=== PATIENT | male | born 1975 | race Caucasian/White ===

== ENCOUNTER 2021-07-26 10:13 | Inpatient (IN) | payer OTHER ==
--- NOTE | 2021-07-26 12:22 | ED ---
Psych HPI - General Chief Complaint: Psychiatric Symptoms Stated Complaint: suicidal Time Seen by Provider: 07/26/21 10:41 Source: patient, RN notes reviewed Mode of arrival: ambulatory Limitations: no limitations - History of Present Illness Initial Comments: 45-year-old male presents emergency Department for psychiatric evaluation. Patient states that he is suicidal. He states that he has attempted suicide in the past he states last 2 weeks she's had severe depression states that his daughters have been keeping him alive. Patient states that he was standing with a gun at his head today. Patient states that he does not feel safe. Patient offers no other complaints. Patient does admit to marijuana use, occasional alcohol use. - Related Data Home Medications Medication Instructions Recorded Confirmed amLODIPine BESYLATE [Norvasc] 10 mg PO DAILY 06/17/15 07/26/21 lisinopriL [Zestril] 10 mg PO DAILY 06/17/15 07/26/21 Atorvastatin [Lipitor] 20 mg PO HS 07/26/21 07/26/21 Cholecalciferol [Vitamin D3 (25 50 mcg PO DAILY 07/26/21 07/26/21 Mcg = 1000 Iu)] Omeprazole [PriLOSEC] 40 mg PO AC-BID 07/26/21 07/26/21 Allergies Allergy/AdvReac Type Severity Reaction Status Date / Time gabapentin AdvReac DELIRIUM Verified 07/26/21 12:30 Review of Systems ROS Statement: Those systems with pertinent positive or pertinent negative responses have been documented in the HPI. ROS Other: All systems not noted in ROS Statement are negative. Past Medical History Past Medical History: GERD/Reflux, Hearing Disorder / Deafness, Hypertension, Osteoarthritis (OA) Additional Past Medical History / Comment(s): [facility] History of Any Multi-Drug Resistant Organisms: None Reported Additional Past Surgical History / Comment(s): VASECTOMY Past Anesthesia/Blood Transfusion Reactions: No Reported Reaction Past Psychological History: No Psychological Hx Reported Smoking Status: Never smoker Past Alcohol Use History: Rare Past Drug Use History: None Reported - Past Family History Mother Family Medical History: No Reported History General Exam Limitations: no limitations General appearance: alert, in no apparent distress Head exam: Present: atraumatic, normocephalic, normal inspection Eye exam: Present: normal appearance, PERRL, EOMI. Absent: scleral icterus, conjunctival injection, periorbital swelling ENT exam: Present: normal exam, normal oropharynx, mucous membranes moist Neck exam: Present: normal inspection, full ROM. Absent: tenderness, meningismus, lymphadenopathy Respiratory exam: Present: normal lung sounds bilaterally. Absent: respiratory distress, wheezes, rales, rhonchi, stridor Cardiovascular Exam: Present: regular rate, normal rhythm, normal heart sounds. Absent: systolic murmur, diastolic murmur, rubs, gallop, clicks Neurological exam: Present: alert, oriented X3, CN II-XII intact Psychiatric exam: Present: depressed, suicidal ideation Skin exam: Present: warm, dry, intact, normal color. Absent: rash Course Vital Signs 07/26/21 07/26/21 10:16 12:00 Temperature 97.0 F L Pulse Rate 82 87 Respiratory 18 18 Rate Blood Pressure 164/105 177/102 O2 Sat by Pulse 100 98 Oximetry Medical Decision Making - Medical Decision Making 45-year-old male presented for psychiatric evaluation patient does have a EPS case discussed with psychiatrist for constipation to be admitted. Patient did sign voluntarily. Disposition Clinical Impression: Depression, Suicidal ideation Disposition: TRANSFER TO PSYCH HOSP/UNIT Condition: Fair Referrals: Koffi Yadav DO [Primary Care Provider] - 1-2 days Time of Disposition: 13:34
[2021-07-26 14:10] LABS: Amphetamine Screen,Urine Not Detected (NotDetected); Barbiturate Screen,Urine Not Detected (NotDetected); Benzodiazepines Screen,Urine Not Detected (NotDetected); Cocaine Screen,Urine Not Detected (NotDetected); Methadone Screen, Urine Not Detected (NotDetected); Opiate Screen,Urine Not Detected (NotDetected); Oxycodone Screen, Urine Not Detected (NotDetected); Phencyclidine Screen,Urine Not Detected (NotDetected); Tricyclic Antidepressant,Urine Not Detected (NotDetected); Urn Cannabinoid Scrn Detected (NotDetected)
[2021-07-26] MEDS ORDERED: HALOPERIDOL LACTATE 5 MG/ML 1 ML VIAL IM PRN (16:34)
[2021-07-26] MEDS ORDERED: MAG HYDROX/AL HYDROX/SIMETH 30 ML CUP PO PRN (16:34)
[2021-07-26] MEDS ORDERED: ACETAMINOPHEN TAB 325 MG TAB PO PRN (16:34)
[2021-07-26] MEDS ORDERED: LORazepam 1 MG TAB PO PRN (16:34)
[2021-07-26] MEDS ORDERED: MAGNESIUM HYDROXIDE 2,400 MG/10 ML CUP PO PRN (16:34)
[2021-07-26] MEDS ORDERED: haloperidoL 5 MG TAB PO PRN (16:35)
[2021-07-26] MEDS ORDERED: LORazepam 2 MG/ML INJ IM PRN (16:35)
[2021-07-26] MEDS: PANTOPRAZOLE 40 MG TABLET PO SCH (17:16)
[2021-07-26] MEDS: ATORVASTATIN 20 MG TAB PO SCH (21:07)
[2021-07-27 07:22] LABS: Basophils # (A) 0.1 k/uL (0-0.2); Basophils % (A) 1 %; Eosinophils # (A) 0.1 k/uL (0-0.7); Eosinophils % (A) 1 %; HCT 47.5 % (39.0-53.0); HGB 15.5 gm/dL (13.0-17.5); Lymphocytes # (A) 1.7 k/uL (1.0-4.8); Lymphocytes % (A) 21 %; MCH 30.3 pg (25.0-35.0); MCHC 32.7 g/dL (31.0-37.0); MCV 92.7 fL (80.0-100.0); Mean Platelet Volume 9.7; Monocytes # (A) 0.6 k/uL (0-1.0); Monocytes % (A) 8 %; Neutrophils # (A) 5.6 k/uL (1.3-7.7); Neutrophils % (A) 68 %; Platelet Count 297 k/uL (150-450); RBC 5.12 m/uL (4.30-5.90); RDW 12.5 % (11.5-15.5); WBC 8.2 k/uL (3.8-10.6)
[2021-07-27 07:33] LABS: ALT 21 U/L (4-49); AST 23 U/L (17-59); African American GFR (CKD) >90 (>60 ml/min/1.73 sqM); Albumin 4.5 g/dL (3.5-5.0); Alkaline Phosphatase 76 U/L (38-126); Anion Gap 6 mmol/L; Blood Urea Nitrogen 10 mg/dL (9-20); Calcium 9.5 mg/dL (8.4-10.2); Carbon Dioxide 31 mmol/L (22-30); Chloride 101 mmol/L (98-107); Glucose 105 mg/dL (74-99); Non-African American GFR(CKD) >90 (>60 ml/min/1.73 sqM); Potassium 4.8 mmol/L (3.5-5.1); Sodium 138 mmol/L (137-145); Total Bilirubin 1.5 mg/dL (0.2-1.3); Total Protein 7.5 g/dL (6.3-8.2)
[2021-07-27] MEDS: amLODIPine 10 MG TAB PO SCH (08:14)
[2021-07-27] MEDS: CHOLECALCIFEROL 25 MCG (1000 IU) TABLET PO SCH (08:14)
[2021-07-27] MEDS: PANTOPRAZOLE 40 MG TABLET PO SCH ×2 (08:15→17:38)
[2021-07-27] MEDS: lisinopriL 10 MG TAB PO SCH (08:15)
--- NOTE | 2021-07-27 13:59 | P.CONS ---
History of Present Illness - Reason for Consult Consult date: 07/26/21 - History of Present Illness This is a 45-year-old male with past medical history significant for GERD, hypertension, osteoarthritis, hard of hearing. Has a surgical history of neck surgery with a surgeon in [place], states he needs back surgery but won't be getting it, also states his right hip is out of place, and also with left elbow pain with range of motion. Patient came to the yesterday afternoon for psychiatric evaluation, with suicidal ideations with past history of attempted suicide. Patient reports he had pointed a gun at his own head earlier that day. Patient reports severe depression over the last couple weeks. 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 States that the problem is that he is alone at home when he is not with his daughter, has no significant other. He does work-out. Currently uses powdered nicotine, previous history of smoking, occasional marijuana use, and occasional alcohol use. Previous suicide attempt was related to him being "annihalated, and waking up in the morning next to a pill bottle." States it was not intentional. He has never been on medications for depression or followed up with outpatient counseling services. Patient follows with Dr Stein in the primary care setting. Medications include omeprazole, atorvastatin, lisinopril, norvasc, vitamin D3, ALLERGY to gabapentin. He also states his acid reflux comes from years of daily ibuprofen use for his chronic back pain, states he has been on norco, tylenol 3's etc in the past and does not want any pain medication here. Labs today show CO2 31, glucose 15, total bili 1.5, TSH within normal limits at 2.160, urine drug toxicology negative with the exception of marijuana, COVID Negative. We are seeing patient in consultation this admission. Patient is afebrile, heart 71, blood pressure 147/76, 98% room air REVIEW OF SYSTEMS: CONSTITUTIONAL: No fever, no malaise, no fatigue. HEENT: No recent visual problems or hearing problems. Denied any sore throat. CARDIOVASCULAR: No chest pain, orthopnea, PND, no palpitations, no syncope. PULMONARY: No shortness of breath, no cough, no hemoptysis. GASTROINTESTINAL: No diarrhea, no nausea, no vomiting, no abdominal pain. NEUROLOGICAL: No headaches, no weakness, no numbness. HEMATOLOGICAL: Denies any bleeding or petechiae. GENITOURINARY: Denies any burning micturition, frequency, or urgency. MUSCULOSKELETAL/RHEUMATOLOGICAL: Denies any joint swelling, or any muscle pain. Reports left elbow pain with extension and rotation. ENDOCRINE: Denies any polyuria or polydipsia. The rest of the 14-point review of systems is negative. PHYSICAL EXAMINATION: GENERAL: The patient is alert and oriented x3, not in any acute distress. Well developed, well nourished. HEENT: Pupils are round and equally reacting to light. EOMI. No scleral icterus. No conjunctival pallor. Normocephalic, atraumatic. No pharyngeal erythema. No thyromegaly. CARDIOVASCULAR: S1 and S2 present. No murmurs, rubs, or gallops. PULMONARY: Chest is clear to auscultation, no wheezing or crackles. ABDOMEN: Soft, nontender, nondistended, normoactive bowel sounds. No palpable organomegaly. MUSCULOSKELETAL: No joint swelling or deformity. EXTREMITIES: No cyanosis, clubbing, or pedal edema. NEUROLOGICAL: Gross neurological examination did not reveal any focal deficits. SKIN: No rashes. Assessment and plan Assessment Depression with suicidal ideation Past history of suicide attempt Hypertension, on home medications GERD, on Protonix Daily NSAID use History osteoarthritis Chronic daily nicotine use Marijuana use GI prophylaxis DVT prophylaxis Full Code Plan Resume home medications Patient denies need for nicotine patch/gum Patient denied imaging for left elbow pain Repeat CMP tomorrow Thank you for this consultation we will continue to follow along as needed. Past Medical History Past Medical History: GERD/Reflux, Hearing Disorder / Deafness, Hypertension, Osteoarthritis (OA) Additional Past Medical History / Comment(s): [facility] History of Any Multi-Drug Resistant Organisms: None Reported Additional Past Surgical History / Comment(s): VASECTOMY, Neck surgery, he reports that he needs back surgery and right hip, left knee and left elbow, Past Anesthesia/Blood Transfusion Reactions: No Reported Reaction Past Psychological History: No Psychological Hx Reported Smoking Status: Never smoker Past Alcohol Use History: Rare Past Drug Use History: None Reported - Past Family History Mother Family Medical History: No Reported History Medications and Allergies Home Medications Medication Instructions Recorded Confirmed Type amLODIPine BESYLATE [Norvasc] 10 mg PO DAILY 06/17/15 07/26/21 History lisinopriL [Zestril] 10 mg PO DAILY 06/17/15 07/26/21 History Atorvastatin [Lipitor] 20 mg PO HS 07/26/21 07/26/21 History Cholecalciferol [Vitamin D3 (25 50 mcg PO DAILY 07/26/21 07/26/21 History Mcg = 1000 Iu)] Omeprazole [PriLOSEC] 40 mg PO AC-BID 07/26/21 07/26/21 History Allergies Allergy/AdvReac Type Severity Reaction Status Date / Time gabapentin AdvReac DELIRIUM Verified 07/26/21 12:30 Physical Exam Vitals: Vital Signs Temp Pulse Pulse Resp BP BP Pulse Ox 07/27/21 06:42 98.7 F 71 161/97 98 07/26/21 17:09 98.2 F 63 20 139/89 07/26/21 16:00 68 18 174/89 98 Intake and Output 07/26/21 07/27/21 07/27/21 22:59 06:59 14:59 Other: Weight 83.915 kg Results CBC & Chem 7: 07/27/21 06:47 07/27/21 06:47 Labs: Abnormal Lab Results - Last 24 Hours (Table) 07/26/21 07/27/21 Range/Units 13:33 06:47 Carbon Dioxide 31 H (22-30) mmol/L Glucose 105 H (74-99) mg/dL Total Bilirubin 1.5 H (0.2-1.3) mg/dL U Marijuana (THC) Screen Detected H (NotDetected) Assessment and Plan Time with Patient: Greater than 30
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
[2021-07-27 16:02] LABS: Chol/HDL Ratio 2.82 Ratio; LDL Cholesterol,Calculated 61.8 mg/dL (0.0-131.0); VLDL Calculation 16.32 mg/dL (5.00-40.00)
[2021-07-27] MEDS: QUEtiapine 100 MG TAB PO SCH (21:23)
[2021-07-27] MEDS: ATORVASTATIN 20 MG TAB PO SCH (21:23)
[2021-07-28 06:12] VITALS: TEMP 97.5
[2021-07-28] MEDS: CITALOPRAM HYDROBROMIDE 10 MG TAB PO SCH (08:52)
[2021-07-28] MEDS: amLODIPine 10 MG TAB PO SCH (08:52)
[2021-07-28] MEDS: lisinopriL 10 MG TAB PO SCH (08:52)
[2021-07-28] MEDS: PANTOPRAZOLE 40 MG TABLET PO SCH ×2 (08:52→17:38)
[2021-07-28] MEDS: CHOLECALCIFEROL 25 MCG (1000 IU) TABLET PO SCH (08:52)
--- NOTE | 2021-07-28 15:14 | P.PN ---
Subjective Progress Note Date: 07/28/21 Principal diagnosis: PRogress note He was seen today . Olivia was discussed at the team meeting. He exhibited suicidal ideation with hi shome gun gunjan was taken away by his friend and his mother prior to hi sadmsision. 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 He questioned about the dosage of Seroquel ; he thought seroquel wwas a sedative hyponotic. He used to take melatonin. The issue of hopelessness and recurrent suicidal idetion was discussed at some length. He was more comfortable with the milieu and reframed his perpective; : He now has reason to live and would not be thinking of suicidal plan as a way out. He has made grey to signing himself to the oupatient program at [facility] soon. He indicated he would have a difficult time to adjust to change of staff. MSE; agitation has largely resolved. No longer was hostile . He was less irritable congruent with his thought content. No paranoid ideas of reference. No suicidal or homicidal ideation . No psychotic elements o fhallucinations. Insight judgment has much improved. Diag: TPSD, Social anxiety disorder, Atypical depressive disorder Plan: 1. Rx given x 30 dasy. Seroquel 75 mg po qhs for PTSD, celexa 10 mg po od 2. Discharge tomorrow. 3. D/S done ahead of date Objective - Vital Signs Vital signs: Vital Signs Temp 97.5 F L 07/28/21 06:11 Pulse 99 07/28/21 06:11 Resp 14 07/28/21 06:11 BP 137/96 07/28/21 06:11 Pulse Ox 98 07/27/21 06:42 - Labs CBC & Chem 7: 07/27/21 06:47 07/27/21 06:47
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
[2021-07-28] MEDS ORDERED: QUEtiapine 25 MG TAB PO SCH (21:00)
[2021-07-28] MEDS: QUEtiapine 100 MG TAB PO SCH (21:10)
[2021-07-28] MEDS: ATORVASTATIN 20 MG TAB PO SCH (21:10)
[2021-07-29 06:29] VITALS: BP 155/90; PULSE 86; RESP 16
[2021-07-29] MEDS: CHOLECALCIFEROL 25 MCG (1000 IU) TABLET PO SCH (08:25)
[2021-07-29] MEDS: amLODIPine 10 MG TAB PO SCH (08:25)
[2021-07-29] MEDS: lisinopriL 10 MG TAB PO SCH (08:25)
[2021-07-29] MEDS: CITALOPRAM HYDROBROMIDE 10 MG TAB PO SCH (08:25)
[2021-07-29] MEDS: PANTOPRAZOLE 40 MG TABLET PO SCH (08:25)
--- NOTE | 2021-07-29 11:38 | P.PN ---
Progress Note - Text Progress Note Date: 07/29/21 Clinical Problems: Posttraumatic stress disorder delayed onset, atypical depressive disorder, social anxiety disorder Interim history: I reviewed the medical record, interviewed the patient and discussed the treatment and treatment plan with the treatment team. He is a 45-year-old male admitted to the psychiatric unit voluntarily on 07/26/2021. He was evaluated by Dr. Braga who wrote a discharge summary and discharge orders for today on 07/28/2021. Anderson stated that he is feeling well and wishes to return home. He denied feeling depressed, experiencing uncontrolled anxiety or having thoughts of self- harm. 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 He plans to follow up at [facility] and the clinical social worker as scheduled an appointment for 07/30/2021. Mental status exam: The patient presents alert, pleasant, and cooperative. He was calmly seated without any agitated behavior. He reports that his mood is good. Affect was congruent and euthymic. He denied suicidal or homicidal id eation intent, intent or plan. He denied any auditory or visual hallucinations. There was no evidence of any delusional thought content. His thought process is linear and goal-directed. His speech is fluent and nonpressured. His memory and concentration is grossly intact for the purposes of this session. Assessment: He is much improved from admission and appropriate for discharge and outpatient aftercare Plan: Discharge as written by Dr. Braga with follow-up at the [facility].
== END 2021-07-29 14:17 | disposition home or self-care (01) | DRG 885 ==
LOC: EC 10:13 → 3MHU 16:04
PROVIDERS: ADMIT Psychiatry & Neurology Psychiatry; ATTEND Psychiatry & Neurology Psychiatry
DX: F32.89 Other specified depressive episodes (principal); R45.851 Suicidal ideations; F40.10 Social phobia, unspecified; F41.0 Panic disorder [episodic paroxysmal anxiety]; F41.1 Generalized anxiety disorder; F43.10 Post-traumatic stress disorder, unspecified; G89.29 Other chronic pain; H91.90 Unspecified hearing loss, unspecified ear; I10 Essential (primary) hypertension; K21.9 Gastro-esophageal reflux disease without esophagitis; Z20.822 Contact with and (suspected) exposure to COVID-19; F17.210 Nicotine dependence, cigarettes, uncomplicated; M25.522 Pain in left elbow; Z79.1 Long term (current) use of non-steroidal anti-inflammatories (NSAID); Z79.899 Other long term (current) drug therapy; Z91.51 Personal history of suicidal behavior; Z88.8 Allergy status to other drugs, medicaments and biological substances; Z60.2 Problems related to living alone; Z98.890 Other specified postprocedural states
CPT/HCPCS: 80053; 80061; 80306; 82075; 83036; 84443; 85025; 87635; 99285

== ENCOUNTER → 2023-06-19 | Outpatient (CLI) | payer OTHER ==
--- NOTE | 2023-06-19 09:11 | XR ---
EXAMINATION TYPE: XR lumbar spine 2 or 3V DATE OF EXAM: 06/19/2023 8:40 AM CLINICAL INDICATION:Male, 47 years old with history of M51.36 OTHER INTERVERTEBRAL DISC DEGENERATION, LUM; PHH COMPARISON: None TECHNIQUE: XR lumbar spine 2 or 3V - Frontal, lateral and coned in L5-S1 lateral views of the spine. FINDINGS: No evidence of any acute osseous pathology. No evidence of loss of vertebral body height i s seen. There is normal alignment of the lumbar vertebral bodies. Mild scattered disc space narrowing . Multilevel marginal osteophyte formation throughout the visualized spine. There is facet joint arth ropathy throughout the spine. At least mild neural foraminal stenosis at L5-S1. Disc space narrowing worse at L5-S1. IMPRESSION: 1. No acute fracture. 2. Mild multilevel disc degeneration.
== END | disposition home or self-care (01) ==
LOC: RADXRMAIN 08:16
PROVIDERS: ATTEND Physician Assistant Medical
DX: M51.36 Other intervertebral disc degeneration, lumbar region (principal)
CPT/HCPCS: 72100

== ENCOUNTER → 2023-06-19 | Outpatient (CLI) | payer OTHER ==
[2023-06-19 08:20] VITALS: BP 170/129; PULSE 74; RESP 16
--- NOTE | 2023-06-19 13:58 | P.PAINPG ---
PQRS Measure Charge Sheet Comment: HISTORY OF PRESENT ILLNESS: A 47 yr old male as a referral from the [facility] presents today w severe and chronic LBP since 2009 secondary to DDD, spondylosis and facet arthropathy without myelopathy for evaluation. Pt states pain level is provoked at 10/10 in intensity, constant, localized in the lower lumbar spine, predominantly axial, sharp in character w occasional shooting pain towards the BLEs. Pain is provoked by standing/ sitting for periods >15 min. Pain is alleviated by physician guided exercises/ stretches on the elliptical 30 min daily x 3 mo, heat, medications (Ibu), Lidocaine patches, repositioning and rest. 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 Oswestry axial pain score at 26. PMH: OA, GERD, Kaw, HTN, MDD PSH: Colonoscopy (2016), Vasectomy, Cervical Surgery SH: Never smoker, Rare ETOH use, Cannabis use. Has 2 daughters. FH: Mo- No Reported History All: See list Meds: See list REVIEW OF ORGAN SYSTEMS: CONSTITUTIONAL: No fevers or chills. No recent weight loss. NEUROLOGICAL: + numbness and tingling along the distal extremities. No seizure disorders or headaches. MUSCULOSKELETAL: + pain PSYCHIATRIC: Denies current depression or suicidal thoughts. Physical Examinations : Constitutional : Cooperative , not in acute distress . Neurologic : Cranial nerve II to XII intact. No focal neurological deficits. Psychiatric : alert & oriented x 3. Matching mood & appropriate affect. Judgment & insight intact. Musculoskeletal : Cervical Spine Motor strength in the deltoid and biceps: Normal right side. Normal Left side Motor strength biceps and the wrist extensors: Normal right side . Normal left side Motor strength in the triceps muscle: Normal right side. Normal left side Deep tendon reflexes: Normal at the b iceps. Normal at Brachioradialis. Normal at triceps Vertebral body tenderness to deep palpation over Cervical facet loading test: positive bilaterally Spurling test: positive bilaterally Neck distraction test: positive bilaterally Corinna sign: positive bilaterally Lumbar spine Motor strength lower extremities ,thigh and legs 5/5 Right side , 5/5 Left side Deep tendon reflexes : Normal Knee Jerk. Normal Ankle Jerk Vertebral body tenderness over L4 Tubbs Test positive Lumbar facet Loading Test: positive Right / positive Left Range of motion of the lumbar spine Flexion 30 degrees, extension 10 degrees Straight Leg Raise test: Left/ Right positive at degrees Morteza test: positive right / positive left. Severe tenderness over the Sacroiliac joint on the Right / Left sides Gaenslen test: positive bilaterally Seated flexion test: positive bilater ally. Sacral spine : Severe tenderness over the Sacroiliac joint: right side / left side Range of motion: Flexion of the lumbar spine <60 degrees Range of motion: Extension of the lumbar spine <20 degrees Gaenslen's Test positive Morteza test: positive right side / left side Thigh Thrust Test Sacral Thrust Test Imaging: None on file Assessment/ Plan : Lumbar DDD Recommended by x ray lumbar spine M51.36 May need additional testing if indicated. Celebrex 100mg PO BIDWM #60 w 1 RF. All questions answered. I have spent greater than 30 minutes on patient care today. Dr Gomez was available by phone for the evaluation of this patient. The time was used to review the medical records including relevant urine studies and Prescription history (MAPs), review of the available imaging, evaluation and examination of the patient, coordination of care with the medical staff and if applicable referring physicians, as well as creation of the medical record PQRS Narrative: Smoking Status Current every day smoker Home Medications: Ambulatory Orders amLODIPine BESYLATE [Norvasc] 10 mg PO DAILY 06/17/15 lisinopriL [Zestril] 10 mg PO DAILY 06/17/15 Atorvastatin [Lipitor] 20 mg PO HS 07/26/21 Cholecalciferol [Vitamin D3 (25 Mcg = 1000 Iu)] 50 mcg PO DAILY 07/26/21 Omeprazole [PriLOSEC] 40 mg PO AC-BID 07/26/21 Atorvastatin [Lipitor] 20 mg PO HS tab 07/28/21 Citalopram Hydrobromide [CeleXA] 10 mg PO DAILY 30 Days #30 tab 07/28/21 QUEtiapine [SEROquel] 75 mg PO HS 30 Days #90 tab 07/28/21 amLODIPine [Norvasc] 10 mg PO DAILY tab 07/28/21 Celecoxib [CeleBREX] 100 mg PO BID PRN 30 Days #60 cap 06/19/23 Controlled Substance Measures - Controlled Substance Measures Is patient prescribed a controlled substance at discharge?: No
== END ==
LOC: PNWHC3 07:39
PROVIDERS: ATTEND Specialist
DX: M51.16 Intervertebral disc disorders with radiculopathy, lumbar region (principal); M47.26 Other spondylosis with radiculopathy, lumbar region; K21.9 Gastro-esophageal reflux disease without esophagitis; I10 Essential (primary) hypertension; E78.5 Hyperlipidemia, unspecified; M48.061 Spinal stenosis, lumbar region without neurogenic claudication; M19.90 Unspecified osteoarthritis, unspecified site; F32.9 Major depressive disorder, single episode, unspecified; F12.90 Cannabis use, unspecified, uncomplicated; F17.200 Nicotine dependence, unspecified, uncomplicated; Z88.8 Allergy status to other drugs, medicaments and biological substances
CPT/HCPCS: 99211

== ENCOUNTER → 2023-07-03 | Outpatient (CLI) | payer OTHER ==
--- NOTE | 2023-07-03 09:44 | MR ---
EXAMINATION TYPE: MR lumbar spine wo con DATE OF EXAM: 07/03/2023 COMPARISON: X-ray of 06/19/2019 HISTORY: Chronic LBP, BLE radiculopathy. TECHNIQUE: T1 and T2 axial and sagittal images of the lumbar spine are submitted. FINDINGS: There is no abnormal signal seen within the visualized spinal cord or paraspinal soft tissu es. Nonspecific nodularity or thickening in the left adrenal gland nonspecific but most likely on the basis of benign adenoma or hyperplasia. At L1-2 there is no evidence of degenerative disc disease, disc herniation, or foraminal encroachment . At L2-3 there is no evidence of degenerative disc disease, a canals of or foraminal encroachment. At L3-4 there is no evidence of degenerative disc disease, a canals of or foraminal encroachment. At L4-5 there is disc desiccation with broad base disc paracentral protrusion effacing the thecal sac . Neural foramina demonstrate mild narrowing bilaterally. At L5-S1 there is severe degenerative disc disease and discogenic marrow changes. Broad-based disc pr otrusion greater paracentrally on the right. Moderate bilateral foraminal bulging greater on the righ t. IMPRESSION: 1. Severe degenerative disc disease L5-S1 with broad-based disc protrusion or small herniation greate r paracentrally on the right. Bilateral foraminal encroachment greater on the right. 2. Broad-based central and left paracentral disc bulging or small subligamentous protrusion L4-L5. Mi ld bilateral foraminal
== END | disposition home or self-care (01) ==
LOC: RADMRIMAIN 08:33
PROVIDERS: ATTEND Specialist
DX: M51.17 Intervertebral disc disorders with radiculopathy, lumbosacral region (principal)
CPT/HCPCS: 72148

== ENCOUNTER → 2023-07-10 | Outpatient (CLI) | payer OTHER ==
[2023-07-10 09:35] VITALS: BP 167/104; PULSE 67; RESP 16; TEMP 98.6
--- NOTE | 2023-07-10 14:07 | P.PAINPG ---
PQRS Measure Charge Sheet Comment: HISTORY OF PRESENT ILLNESS: A 47 yr old male presents today w severe and chronic LBP since 2009 secondary to DDD, spondylosis and facet arthropathy without myelopathy for evaluation. Pt states pain level is provoked at 10/10 in intensity, constant, localized in the lower lumbar spine, predominantly axial, sharp in character w occasional shooting pain towards the BLEs. Pain is provoked by standing/ sitting for periods >15 min. Pain is alleviated by physician guided exercises/ stretches on the elliptical 30 min daily x 3 mo, heat, medications, Lidocaine patches, repositioning and rest. 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 Oswestry axial pain score at 26. Interventional procedures include Medications include Ibu, Lidoderm, Cannabis use REVIEW OF ORGAN SYSTEMS: CONSTITUTIONAL: No fevers or chills. No recent weight loss. NEUROLOGICAL: + numbness and tingling along the distal extremities. No seizure disorders or headaches. MUSCULOSKELETAL: + pain PSYCHIATRIC: Denies current depression or suicidal thoughts. Physical Examinations : Constitutional : Cooperative , not in acute distress . Neurologic : Cranial nerve II to XII intact. No focal neurological deficits. Psychiatric : alert & oriented x 3. Matching mood & appropriate affect. Judgment & insight intact. Musculoskeletal : Cervical Spine Motor strength in the deltoid and biceps: Normal right side. Normal Left side Motor strength biceps and the wrist extensors: Normal right side . Normal left side Motor strength in the triceps muscle: Normal right side. Normal left side Deep tendon reflexes: Normal at the biceps. Normal at Brachioradialis. Normal at triceps Vertebral body tenderness to deep palpation over Cervical facet loading test: positive bilaterally Spurling test: positive bilaterally Neck distraction test: positive bilaterally Corinna sign: positive bilaterally Lumbar spine Motor strength lower extremities ,thigh and legs 5/5 Right side , 5/5 Left side Deep tendon reflexes : Normal Knee Jerk. Normal Ankle Jerk Vertebral body tenderness over L5 Tubbs Test positive Lumbar facet Loading Test: positive Right / positive Left Range of motion of the lumbar spine Flexion 30 degrees, extension 10 degrees Straight Leg Raise test: Left/ Right positive at degrees Morteza test: positive right / positive left. Severe tenderness over the Sacroiliac joint on the Right / Left sides Gaenslen test: positive bilaterally Seated flexion test: positive bilaterally. Sacral spine : Severe tenderness over the Sacroiliac joint: right side / left side Range of motion: Flexion of the lumbar spine <60 degrees Range of motion: Extension of the lumbar spine <20 degrees Gaenslen's Test positive Morteza test: positive right side / left side Thigh Thrust Test Sacral Thrust Test Imaging: None on file Assessment/ Plan : Lumbar DDD Recommended SHERMAN L5-S1 #1. A series of injections for optimal pain relief. Risks, benefits of procedure discussed and patient verbalized understanding. Protocol for discontinuation/continuation of medication surrounding procedure discussed. All questions answered. I have spent greater than 30 minutes on patient care today. Dr Gomez was available by phone for the evaluation of this patient. The time was used to review the medical records including relevant urine studies and Prescription history (MAPs), review of the available imaging, evaluation and examination of the patient, coordination of care with the medical staff and if applicable referring physicians, as well as creation of the medical record PQRS Narrative: Smoking Status Current every day smoker Hx Alcohol Use (MH) Yes Home Medications: Ambulatory Orders amLODIPine BESYLATE [Norvasc] 10 mg PO DAILY 06/17/15 lisinopriL [Zestril] 10 mg PO DAILY 06/17/15 Atorvastatin [Lipitor] 20 mg PO HS 07/26/21 Cholecalciferol [Vitamin D3 (25 Mcg = 1000 Iu)] 50 mcg PO DAILY 07/26/21 Omeprazole [PriLOSEC] 40 mg PO AC-BID 07/26/21 Atorvastatin [Lipitor] 20 mg PO HS tab 07/28/21 Citalopram Hydrobromide [CeleXA] 10 mg PO DAILY 30 Days #30 tab 07/28/21 QUEtiapine [SEROquel] 75 mg PO HS 30 Days #90 tab 07/28/21 amLODIPine [Norvasc] 10 mg PO DAILY tab 07/28/21 Celecoxib [CeleBREX] 100 mg PO BID PRN 30 Days #60 cap 06/19/23 Controlled Substance Measures - Controlled Substance Measures Is patient prescribed a controlled substance at discharge?: No
== END ==
LOC: PNWHC3 08:41
PROVIDERS: ATTEND Specialist
DX: M51.36 Other intervertebral disc degeneration, lumbar region (principal); F17.200 Nicotine dependence, unspecified, uncomplicated; F12.90 Cannabis use, unspecified, uncomplicated; Z88.1 Allergy status to other antibiotic agents
CPT/HCPCS: 99211

== ENCOUNTER 2023-07-20 12:07 | Day surgery (SDC) | payer OTHER ==
[2023-07-17 14:52] VITALS: BMI 32.5
[~2023-07-20 12:07] MED LIST: LACTATED RINGERS 1,000 ML IV SCH
[2023-07-20 12:53] VITALS: TEMP 98.3
[2023-07-20] MEDS ORDERED: methylPREDNISolone ACETATE 80 MG/ML 1 ML VIAL ONE (13:18)
[2023-07-20] MEDS ORDERED: IOPAMIDOL M200 10 ML VIAL ONE (13:18)
--- NOTE | 2023-07-20 13:24 | P.PCN ---
Date of Procedure: 07/20/23 Procedure(s) Performed: PREOPERATIVE DIAGNOSIS: 1- Lumbar Degenerative Disc Diseases 2-Lumbar herniated disc disease. 3-lumbar spinal stenosis POSTOPERATIVE DIAGNOSIS: 1-lumbar degenerative disc disease. 2-lumbar herniated disc disease. 3-lumbar spinal stenosis. PROCEDURE 1. Lumbar epidural steroid injection under fluoroscopic guidance at the L5-S1 level. (Fluoroscopy imaging was available in radiology department) 2. Lumbar epidurogram. ANESTHESIA: Lidocaine 1% 3 and then only. EBL: Minimal PROCEDURE INDICATION: The patient with low back pain and radiculitis symptoms unresponsive to conservative treatment. Fluoroscopy was used to optimize visualization of the needle placement and to maximize safety. PROCEDURE DESCRIPTION / TECHNIQUE: The patient was seen and identified in the preoperative area. Risks, benefits, complications including but not limited to infections ,bleeding ,allergic reaction to the medications ,nerve damage and not complete pain releife , and alternatives were discussed with the patient. The patient agreed to proceed with the procedure and signed the consent, and vital signs were stable. Patient was taken to the OR and time out was completed. The patient was placed in the prone position on procedure table and a pillow was placed under the abdomen to reduce lumbar lordosis. The lumbosacral area was prepped and draped in the usual sterile fashion.ere closely monitored during the procedure. Vital signs was monitered during the entire procedure. Using anterior-posterior fluoroscopy, the L5-S1 interlaminar space was identified and the skin over this site was marked and then infiltrated with 1% lidocaine subcutaneously. Subsequently, a 20-gauge Tuohy epidural needle was inserted and advanced toward the epidural space using the ``Loss of resistance technique and guided by AP and lateral fluoroscopy. The correct needle position in the epidural space was verified with the injection of 2 mL of the water soluble contrast dye Isovue 200 contrast and observing an excellent epidurogram with the epidural spread of the dye, after negative aspiration for blood and CSF and in the absence of paresthesias. Again after negative aspiration, a 6 ml mixture containing 80 mg of Depo-medrol ( Preservetive Free ), and 2 ml of preservative free Normal Saline, and 2 ml of preservative free lidocaine 1% solution was injected and a washout of epidurogram was seen. Needle was withdrawn intact, skin was cleansed, and bandages were applied. COMPLICATIONS: None DISPOSITION / PLANS: The patient was placed in a supine position and transferred to the recovery area in a stable condition for observation. There was no evidence of lower extremity motor or sensory deficit after the procedure. Patient was discharged from the recovery room after meeting discharge criteria. Home discharge instructions were given to the patient by the staff. The patient was reexamined prior to discharge. The patient will schedule a follow up in the clinic in 2-4 weeks.
[2023-07-20 13:59] VITALS: BP 145/74; PULSE 74; RESP 16
--- NOTE | 2023-07-20 14:18 | FL ---
EXAMINATION TYPE: FL guided pain mgmt statistic DATE OF EXAM: 07/20/2023 HISTORY: LESI dap [id number] fl 2.3 lesi
== END 2023-07-20 14:00 | disposition home or self-care (01) ==
LOC: ORPAIN 12:07
PROVIDERS: ATTEND Anesthesiology
DX: M51.16 Intervertebral disc disorders with radiculopathy, lumbar region (principal); M48.061 Spinal stenosis, lumbar region without neurogenic claudication; Z88.9 Allergy status to unspecified drugs, medicaments and biological substances
CPT/HCPCS: 62323; J1040; Q9966

== ENCOUNTER → 2023-08-14 | Outpatient (CLI) | payer OTHER ==
[2023-08-14 09:07] VITALS: BP 172/129; PULSE 72; RESP 15; TEMP 98.5
--- NOTE | 2023-08-14 14:35 | P.PAINPG ---
PQRS Measure Charge Sheet Comment: HISTORY OF PRESENT ILLNESS: A 47 yr old male presents today w severe and chronic LBP since 2009 secondary to DDD, spondylosis and facet arthropathy without myelopathy for evaluation s/p SHERMAN L5-S1 #1. Pt states he experienced 90 % pain relief x 3 wks s/p procedure. Pt states pain level is provoked at 2 /10 in intensity, constant, localized in the lower lumbar spine, predominantly axial, sharp in character w occasional shooting pain towards the BLEs. Pain is provoked by standing/ sitting for periods >15 min. Pain is alleviated by physician guided exercises/ stretches on the elliptical 30 min daily x 3 mo, heat, medications, Lidocaine patches, repositioning and rest. 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 Oswestry axial pain score at 20. Dangers of elevated BP discussed. Pt states he's on BP meds and wants to go to the [facility] clinic because he "doesn't want a big bill" Pt refused to go to the ER downstairs, be assisted downstairs or get his BP rechecked. Interventional procedures include SHERMAN L5-S1 #1 Medications include Ibu, Lidoderm, Cannabis use REVIEW OF ORGAN SYSTEMS: CONSTITUTIONAL: No fevers or chills. No recent weight loss. NEUROLOGICAL: + numbness and tingling along the distal extremities. No seizure disorders or headaches. MUSCULOSKELETAL: + pain PSYCHIATRIC: Denies current depression or suicidal thoughts. Physical Examinations : Constitutional : Cooperative , not in acute distress . Neurologic : Cranial nerve II to XII intact. No focal neurological deficits. Psychiatric : alert & oriented x 3. Matching mood & appropriate affect. Judgment & insight intact. Musculoskeletal : Cervical Spine Motor strength in the deltoid and biceps: Normal right side. Normal Left side Motor strength biceps and the wrist extensors: Normal right side . Normal left side Motor strength in the triceps muscle: Normal right side. Normal left side Deep tendon reflexes: Normal at the biceps. Normal at Brachioradialis. Normal at triceps Vertebral body tenderness to deep palpation over Cervical facet loading test: positive bilaterally Spurling test: positive bilaterally Neck distraction test: positive bilaterally Corinna sign: positive bilaterally Lumbar spine Motor strength lower extremities ,thigh and legs 5/5 Right side , 5/5 Left side Deep tendon reflexes : Normal Knee Jerk. Normal Ankle Jerk Vertebral body tenderness over L5 Tubbs Test positive Lumbar facet Loading Test: positive Right / positive Left Range of motion of the lumbar spine Flexion 30 degrees, extension 10 degrees Straight Leg Raise test: Left/ Right positive at degrees Morteza test: positive right / positive left. Severe tenderness over the Sacroiliac joint on the Right / Left sides Gaenslen test: positive bilaterally Seated flexion test: positive bilaterally. Sacral spine : Severe tenderness over the Sacroiliac joint: right side / left side Range of motion: Flexion of the lumbar spine <60 degrees Range of motion: Extension of the lumbar spine <20 degrees Gaenslen's Test positive Morteza test: positive right side / left side Thigh Thrust Test Sacral Thrust Test Imaging: None on file Assessment/ Plan : Lumbar DDD Will manage residual pain and may RTC on an as needed basis. All questions answered. I have spent greater than 30 minutes on patient care today. Dr Gomez was available by phone for the evaluation of this patient. The time was used to review the medical records including relevant urine studies and Prescription history (MAPs), review of the available imaging, evaluation and examination of the patient, coordination of care with the medical staff and if applicable referring physicians, as well as creation of the medical record PQRS Narrative: Smoking Status Current every day smoker Hx Alcohol Use (MH) Yes Home Medications: Ambulatory Orders amLODIPine BESYLATE [Norvasc] 10 mg PO DAILY 06/17/15 Atorvastatin [Lipitor] 20 mg PO HS 07/26/21 Cholecalciferol [Vitamin D3 (25 Mcg = 1000 Iu)] 50 mcg PO DAILY 07/26/21 Omeprazole [PriLOSEC] 40 mg PO AC-BID 07/26/21 Citalopram Hydrobromide [CeleXA] 10 mg PO DAILY 30 Days #30 tab 07/28/21 QUEtiapine [SEROquel] 75 mg PO HS 30 Days #90 tab 07/28/21 ARIPiprazole 5 mg PO DAILY 07/17/23 Controlled Substance Measures - Controlled Substance Measures Is patient prescribed a controlled substance at discharge?: No
== END ==
LOC: PNWHC3 08:44
PROVIDERS: ATTEND Specialist
DX: M51.36 Other intervertebral disc degeneration, lumbar region (principal); F12.90 Cannabis use, unspecified, uncomplicated; F17.200 Nicotine dependence, unspecified, uncomplicated; Z88.8 Allergy status to other drugs, medicaments and biological substances
CPT/HCPCS: 99211

== ENCOUNTER → 2024-05-31 | Outpatient (CLI) | payer OTHER ==
--- NOTE | 2024-05-31 18:42 | MR ---
EXAMINATION TYPE: MR lumbar spine wo con DATE OF EXAM: 05/31/2024 6:27 PM COMPARISON: 07/03/2023. CLINICAL INDICATION: Male, 48 years old with history of M54.50 LOW BACK PAIN, UNSPECIFIED M50.30 OTHE R CER; PHH, Low back pain into both legs getting worse TECHNIQUE: Multi planar, multi sequence imaging was performed utilizing: T1-weighted, T2-weighted, a nd turbo inversion recovery imaging of the lumbar spine. IV Contrast: mL (None, if empty) FINDINGS: Alignment: The lumbar vertebral bodies have preserved heights and alignment. Cord: The conus medullaris and the distal spinal cord appear unremarkable with regards to their signa l intensity and morphology. Bones/Discs: Mild degeneration changes throughout the spine with osteophyte formation and facet joint arthropathy. Modic endplate changes at 05 S1 adjoining endplates. Mild reactive bony edema. Interver tebral disc signal is maintained. No abnormal inversion recovery signal to suggest bony edema. T12-L1: No evidence of significant spinal canal stenosis or neural foraminal stenosis. L1-L2: No evidence of significant spinal canal stenosis or neural foraminal stenosis. L2-L3: No evidence of significant spinal canal stenosis or neural foraminal stenosis. L3-L4: No evidence of significant spinal canal stenosis or neural foraminal stenosis. L4-L5: No evidence of significant spinal canal stenosis. Facet joint arthropathy moderate bilateral n eural foraminal stenosis. L5-S1: The disc has a rounded posterior morphology without significant spinal canal stenosis. Facet j oint arthropathy with moderate bilateral neural foraminal stenosis. No significant spinal canal or neural foraminal stenosis in the remainder of the visualized levels. Other findings: None. IMPRESSION: 1. No definitive evidence of disc herniation or significant spinal canal stenosis. 2. Mild disc degeneration with associated osteoarthritic changes with more moderate at L5-S1 adjoini ng endplates. Degeneration leading to moderate bilateral L4-L5 and L5-S1 neural foraminal stenosis. [facility], , 05/31/2024 6:39 PM
--- NOTE | 2024-05-31 19:20 | MR ---
EXAMINATION TYPE: MR cervical spine wo con DATE OF EXAM: 05/31/2024 7:08 PM COMPARISON: . CLINICAL INDICATION: Male, 48 years old with history of M54.50 LOW BACK PAIN, UNSPECIFIED M50.30 OTHE R CER; PHH, Neck pain and numbness into left arm and fingers x1.5 years, Hx Neck surgery 2019, TECHNIQUE: Multi planar, multi sequence imaging was performed utilizing: T1-weighted, T2-weighted, an d turbo inversion recovery imaging of the cervical spine. IV Contrast: 11 mL Gadobutrol (None, if empty) FINDINGS: Alignment: The cervical vertebral bodies have preserved heights. Alignment is within normal limits gi lisbet patient positioning. Bones: Bone signal is within normal limits. No abnormal bone marrow edema on inversion recovery seque nces. Susceptibility artifact at C6-C7 from hardware limits evaluation. Minimal degeneration changes with osteophyte formation and facet joint arthropathy. Cord: The spinal cord is unremarkable with regards to their signal intensity and morphology. Discs: Intervertebral disc signal is maintained. C2-C3: No significant disc pathology. The spinal canal is patent. No neural foraminal stenosis. C3-C4: No significant disc pathology. The spinal canal is patent. No neural foraminal stenosis. C4-C5: No significant disc pathology. The spinal canal is patent. No neural foraminal stenosis. C5-C6: No significant disc pathology. The spinal canal is patent. No neural foraminal stenosis. C6-C7: Evaluation limited due to susceptibility artifact. No definitive evidence for significant spin al canal or neural foraminal stenosis. C7-T1: No significant disc pathology. The spinal canal is patent. No neural foraminal stenosis. Other: None. IMPRESSION: 1. No evidence for disc herniation or significant spinal canal stenosis. 2. Minimal disc degeneration with associated osteoarthritic changes. 3. Postsurgical changes at C6-C7. No evidence for significant spinal canal or neural foraminal stenos is within the limitations of the exam. [facility], , 05/31/2024 7:17 PM
== END | disposition home or self-care (01) ==
LOC: RADMRIMAIN 17:40
DX: M50.30 Other cervical disc degeneration, unspecified cervical region (principal); M51.379 Other intervertebral disc degeneration, lumbosacral region without mention of lumbar back pain or lower extremity pain; M48.07 Spinal stenosis, lumbosacral region
CPT/HCPCS: 72141; 72148

== ENCOUNTER → 2024-11-12 | Outpatient (CLI) | payer OTHER | END | disposition home or self-care (01) | LOC: LABPAT 14:19 | PROVIDERS: ATTEND Specialist | DX: M48.061 Spinal stenosis, lumbar region without neurogenic claudication (principal); M54.16 Radiculopathy, lumbar region | CPT/HCPCS: 87070 ==